=== PATIENT | male | born 1980 | race Two or more races ===

== ENCOUNTER 2017-01-26 10:10 | Emergency (ER) | payer OTHER ==
--- NOTE | ~2017-01-26 | CR173 ---
[facility] A Service of [facility] & [facility] RADIOLOGY TEXT RESULTS PATIENT: PEREZ FUNEZ LOCATION: [facility] : 76 UNIT #: [id number] AGE: [address]: YUE KUO SEX: M ORDER DR: [id number] [facility] [address] [place], [place] [address] [id number] P MR#: [id number] Acc #: [id number] NAME: PEREZ FUNEZ : 1980 SEX: M STUDY DATE/TIME: 01/26/2017 09:27 UNIT: [facility] ROOM: STUDY DESCRIPTION: CR Knee 3 Views Rt Attending Physician: Yue Kuo A.P.R.N. Ordering Physician: Elena Steele M.D. MEDICAL IMAGING REPORT This report is preliminary unless electronic signature is present EXAM Right knee 3 views, 01/26/2017 09:27 hours HISTORY Patient fell yesterday with pain in knee and bruising on top of kneecap. FINDINGS AP, crosstable lateral and sunrise views are performed. There is no intraarticular joint effusion or acute fracture. Patella is intact. No significant joint space loss or spurring. IMPRESSION No joint effusion or fracture. Specifically, no patella fracture is seen. Dictated by... Christina Zuniga M.D. THIS IS AN ELECTRONICALLY VERIFIED REPORT Christina Zuniga M.D. at 01/26/2017 2:32 PM Carola TD: 01/26/2017 10:05 JOB #: [id number] MEDICAL IMAGING REPORT Page 1 of 1 COPY
== END 2017-01-26 10:24 | disposition home or self-care (01) ==
LOC: CED 10:10
DX: S80.01XA Contusion of right knee, initial encounter (principal); I10 Essential (primary) hypertension; W19.XXXA Unspecified fall, initial encounter; Y92.69 Other specified industrial and construction area as the place of occurrence of the external cause
CPT/HCPCS: 29505; 73562; 96372; 99283; J1885